=== PATIENT | male | born 2000 | race Caucasian/White ===

== ENCOUNTER 2021-03-24 08:26 | Emergency (ER) | END 2021-03-24 08:49 | disposition left against medical advice (07) | LOC: COL.ER 08:26 | DX: R39.89 Other symptoms and signs involving the genitourinary system (principal) ==

== ENCOUNTER 2021-11-04 23:22 | Observation (INO) | payer OTHER ==
[~2021-11-04] VITALS: Ht 188 cm; Wt 127.0 kg
[2021-11-04] MEDS ORDERED: DYNACIN100 M1 PO (23:41)
[2021-11-04] MEDS ORDERED: DEPAKOTE ER 50500 MG PO (23:41)
[2021-11-04 23:43] LABS: COLLECTION METHOD CLEAN CATCH
[2021-11-04 23:55] LABS: MUCOUS Present (NOT PRESENT); SQUAMOUS EPITHELIAL None Seen /hpf (0-10); URINE BACTERIA None Seen /hpf (NONE SEEN); URINE RBC 0-2 /hpf (0-2)
[2021-11-04 23:56] LABS: URINE APPEARANCE Clear (CLEAR/HAZY); URINE COLOR Yellow (YELLOW)
[2021-11-04 23:57] LABS: BASO % 0.3 % (0.0-2.0); EOS # 0.1 K/mm3 (0.0-0.7); EOS % 0.8 % (0.0-4.0); GRAN # 8.4 K/mm3 (1.4-6.5); GRAN % 71.2 % (42.2-75.2); HEMATOCRIT 43.8 % (42.0-52.0); HEMOGLOBIN 15.2 g/dl (13.5-18.0); LYMPH # 2.3 K/mm3 (1.2-3.4); LYMPH % 19.2 % (20.0-51.0); MEAN CELL VOLUME 83 fl (80.0-100.0); MEAN CORPUSCULAR HEMOGLOBIN 29 pg (27-31); MEAN CORPUSCULAR HGB CONC 35 g/dl (33.0-37.0); MEAN PLATELET VOLUME 8.9 fl (7.4-10.4); MONO % 8.2 % (1.7-9.3); PLATELET COUNT 342 K/mm3 (130-400); RED BLOOD COUNT 5.31 M/mm3 (4.20-5.60); REDCELL DISTRIBUTION WIDTH-CV 12.5 % (11.5-14.5)
[2021-11-04 23:57] LABS: URINE BLOOD Negative (NEGATIVE); URINE GLUCOSE Negative (NEGATIVE); URINE KETONE Negative (NEGATIVE); URINE NITRATE Negative (NEGATIVE); URINE PROTEIN(semi-quant) Negative (NEGATIVE); URINE UROBILINOGEN 0.2 E.U/dL (0.2-1.0)
[2021-11-05] VITALS (9 sets, daily range): BP systolic 108–153; BP diastolic 56–83; PULSE 58–96; TEMP 97–99.1
[2021-11-05 00:16] LABS: BILIRUBIN,TOTAL 0.2 mg/dL (0.2-1.2); C-REACTIVE PROTEIN 0.74 mg/dL (0.00-0.50); CALCIUM 9.9 mg/dL (8.4-10.2); CREATININE, serum 0.8 mg/dL (0.72-1.25); POTASSIUM 4.1 mmol/L (3.5-4.5); TOTAL PROTEIN 7.8 gm/dL (6.2-8.1)
[2021-11-05] MEDS ORDERED: VIMPAT200 MG PO (01:47)
[2021-11-05] MEDS ORDERED: TRILEPTAL 300M300 MG PO (01:47)
--- NOTE | 2021-11-05 10:39 | NUR ---
PT TO SURGEY PER BED WITH MARIAMA. CONSENTS SIGNED ON CHART. PT'S MOM ARRIVED TO FLOOR AFTER PT LEFT. RAMIN DORANTES RN TOOK HER TO SURGICAL WAITING AREA.
--- NOTE | 2021-11-05 12:35 | NUR ---
PT RESTING IN BED. TO ROOM 329 WITH REPORT FROM JUNIOR DISLA @[id number]. PT IS A/O X3 LUNGS CTA, BOWEL SOUNDS HYPO. IV TO RFA. VSS, ASSESSMENTS COMPLETE. MOM AND ROOM MATE AT BEDSIDE.
[2021-11-05] MEDS ORDERED: NORCO 325 MG-51 TAB PO (14:49)
--- NOTE | 2021-11-05 15:26 | NUR ---
DISCHARGE INSTUCTIONS REVIEWED WITH PT AND MOM. PT ASKED QUESTIONS AND THEY WERE ANSWERED. PT LEFT UNIT AMBULATORY WITH MOM.
== END 2021-11-05 15:28 | disposition home or self-care (01) ==
LOC: COL.ER 23:22 → SURG 11-05 00:52
PROVIDERS: Nurse Practitioner; ADMIT Surgery
DX: K35.890 Other acute appendicitis without perforation or gangrene (principal); G40.909 Epilepsy, unspecified, not intractable, without status epilepticus; Z79.899 Other long term (current) drug therapy
CPT/HCPCS: G0378; J0330; J0690; J1885; J2270; J2405; J2543; J2704; J3010; J7030; Q9967